=== PATIENT | female | born 1995 | race Caucasian/White ===

== ENCOUNTER 2022-10-01 08:55 | Inpatient (IN) | payer OTHER ==
[2022-10-01] MEDS: ELECTROLYTE-148 SOLN 1,000 ML IV SCH ×2 (10:15→21:10)
[2022-10-01 10:35] LABS: BASO % 0.2 % (0-2.0); EOS % 0.6 % (0-4.5); HEMATOCRIT 37.5 % (32.4-45.2); LYMPH % 14.6 % (8-40); MCH 29.4 pg (25.7-33.7); MCHC 34.6 g/dl (32.0-36.0); MEAN PLT VOLUME 11.2 fl (7.5-11.1); NEUT % 79.6 % (42.8-82.8); PLATELET COUNT 152 10^3/uL (134-434); RBC 4.42 M/mm3 (3.60-5.2); RDW 14.2 % (11.6-15.6); WHITE BLOOD COUNT 9.5 K/mm3 (4.0-10.0)
[2022-10-01 10:45] LABS: CALCIUM 9.3 mg/dL (8.5-10.1)
[2022-10-01] MEDS ORDERED: OXYTOCIN 30 UNITS in 0.9% NS 30 UNIT/500 ML INFUS.BAG IVPB SCH (10:45)
[2022-10-01 10:46] LABS: BLOOD UREA NITROGEN 7.5 mg/dL (7-18)
[2022-10-01 10:49] LABS: CREATININE 0.4 mg/dL (0.55-1.3)
[2022-10-01 10:52] LABS: ACTIVATED PTT 27.4 SECONDS (25.2-36.5); INR 1.01 (0.83-1.09); PROTHROMBIN TIME (PATIENT) 11.7 SEC (9.7-13.0)
[2022-10-01 11:12] VITALS: BMI 28.3
[2022-10-01] MEDS ORDERED: OXYTOCIN 30 UNITS in 0.9% NS 30 UNIT/500 ML INFUS.BAG IVPB ONE (12:07)
[2022-10-01] MEDS ORDERED: PROMETHAZINE HCL 25 MG/1 ML VIAL IVPB ONE (13:00)
[2022-10-01] MEDS ORDERED: BUTORPHANOL TARTRATE 2 MG/ML VIAL IVPB ONE (13:00)
[2022-10-01] MEDS ORDERED: morphine SULFATE/PF 1 MG/2 ML (2cc Syringe - QUVA) ONE (22:42)
[2022-10-01] MEDS ORDERED: FENTANYL CITRATE/PF 50 MCG/ML VIAL ONE (22:42)
[2022-10-01] MEDS ORDERED: ceFAZolin SODIUM 1 GM VIAL ONE (23:24)
[2022-10-01] MEDS ORDERED: OXYTOCIN 10 UNITS/ML VIAL ONE (23:24)
[2022-10-01] MEDS ORDERED: ONDANSETRON 4 MG/2 ML VIAL ONE (23:24)
[2022-10-01] MEDS ORDERED: KETOROLAC TROMETHAMINE 30 MG/1 ML VIAL ONE (23:24)
[2022-10-01] MEDS ORDERED: METHYLERGONOVINE MALEATE 0.2 MG/1 ML AMP IM PRN (23:54)
[2022-10-01] MEDS ORDERED: IBUPROFEN 800 MG/8 ML IJ IVPB PRN (23:54)
[2022-10-01] MEDS ORDERED: ACETAMINOPHEN 325 MG TABLET (FP) PO PRN (23:54)
[2022-10-01] MEDS ORDERED: CITRIC ACID/SODIUM CITRATE 30 ML UNIT-DOSE CUP PO ONE (23:56)
[2022-10-02] MEDS ORDERED: morphine SULFATE/PF 1 MG/2 ML (2cc Syringe - QUVA) SPIN ONE (00:01)
[2022-10-02] MEDS ORDERED: ONDANSETRON 4 MG/2 ML VIAL IVPUSH PRN (00:01)
[2022-10-02] MEDS: ACETAMINOPHEN 1000 MG/100 ML BAG IVPB SCH ×4 (00:30→19:03)
[2022-10-02] MEDS ORDERED: OXYTOCIN 20 UNITS in 0.9% NS 20 UNIT/1,000 ML INFUS.BAG IV ONE ×2 (01:37→09:19)
[2022-10-02] MEDS: OXYTOCIN 20 UNITS in 0.9% NS 20 UNIT/1,000 ML INFUS.BAG IV SCH ×2 (01:40→09:47)
[2022-10-02] MEDS ORDERED: ACETAMINOPHEN INJECTION 100 ML IVPB ONE ×2 (06:05→11:22)
[2022-10-02 07:19] LABS: BASO % 0.2 % (0-2.0); EOS % 0.4 % (0-4.5); HEMATOCRIT 32.2 % (32.4-45.2); HEMOGLOBIN 11.3 GM/dL (10.7-15.3); LYMPH % 12.3 % (8-40); MCH 29.8 pg (25.7-33.7); MCHC 35.1 g/dl (32.0-36.0); MEAN CELL VOLUME 84.9 fl (80-96); MEAN PLT VOLUME 10.8 fl (7.5-11.1); NEUT % 81.1 % (42.8-82.8); PLATELET COUNT 118 10^3/uL (134-434); RDW 14.3 % (11.6-15.6); WHITE BLOOD COUNT 13.2 K/mm3 (4.0-10.0)
[2022-10-02] MEDS: PRENATAL VITAMINS W/ FOLIC ACID TABLET (FP) PO SCH (09:46)
[2022-10-02] MEDS ORDERED: oxyCODONE HCL 5 MG TABLET PO PRN ×2 (11:54)
[2022-10-02] MEDS ORDERED: oxyCODONE HCL 5 MG TABLET ONE (13:03)
[2022-10-02] MEDS: SENNOSIDES/DOCUSATE COMBO (SENNA PLUS) TABLET (UD) PO PRN (19:56)
[2022-10-02] MEDS: SIMETHICONE 80 MG TAB.CHEW (FP) PO PRN (19:56)
[2022-10-02] MEDS: IBUPROFEN 600 MG TABLET (FP) PO PRN (19:56)
[2022-10-02 22:33] VITALS: RESP 18
[2022-10-02] MEDS ORDERED: BISACODYL 10 MG SUPP.RECT RC PRN (23:54)
[2022-10-03] MEDS: IBUPROFEN 600 MG TABLET (FP) PO PRN ×2 (06:08→21:26)
[2022-10-03] MEDS: SIMETHICONE 80 MG TAB.CHEW (FP) PO PRN ×3 (06:08→21:26)
[2022-10-03] MEDS: PRENATAL VITAMINS W/ FOLIC ACID TABLET (FP) PO SCH (09:22)
[2022-10-03] MEDS: SENNOSIDES/DOCUSATE COMBO (SENNA PLUS) TABLET (UD) PO PRN (16:54)
[2022-10-04] MEDS: PRENATAL VITAMINS W/ FOLIC ACID TABLET (FP) PO SCH (09:08)
[2022-10-04 09:18] VITALS: BP 132/73; PULSE 64; TEMP 97.8
== END 2022-10-04 14:45 | disposition home or self-care (01) | DRG 788 ==
LOC: JLDR 08:55 → J3W 10-02 14:12
PROVIDERS: ADMIT Obstetrics & Gynecology; ATTEND Obstetrics & Gynecology
PROC: 10D00Z1 Extraction of Products of Conception, Low, Open Approach (ICD-10-PCS; principal; 2022-10-01)
PROC: 10907ZC Drainage of Amniotic Fluid, Therapeutic from Products of Conception, Via Natural or Artificial Opening (ICD-10-PCS; 2022-10-01)
PROC: 3E033VJ Introduction of Other Hormone into Peripheral Vein, Percutaneous Approach (ICD-10-PCS; 2022-10-01)
DX: O41.03X0 Oligohydramnios, third trimester, not applicable or unspecified (principal); O62.0 Primary inadequate contractions; O69.1XX0 Labor and delivery complicated by cord around neck, with compression, not applicable or unspecified; O76 Abnormality in fetal heart rate and rhythm complicating labor and delivery; O34.03 Maternal care for unspecified congenital malformation of uterus, third trimester; Z3A.39 39 weeks gestation of pregnancy; Z37.0 Single live birth
CPT/HCPCS: 36415; 80048; 85025; 85610; 85730; 86780; 86850; 86900; 86901; 87086; 87186; 88307-TC; C9803-CS; U0003; U0005